=== PATIENT | male | born 1985 | race American Indian/Alaskan Native ===

== ENCOUNTER 2019-02-12 19:05 | Emergency (ER) | payer OTHER ==
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
--- NOTE | 2019-02-12 20:13 | Cat Scan Report ---
CT head/brain wo con INDICATION: headache. TECHNIQUE: Routine CT head without contrast. All CT scans at this location are performed using CT dos e reduction for ALARA by means of automated exposure control. COMPARISON: None. FINDINGS: BRAIN / INTRACRANIAL CONTENTS: No acute hemorrhage, mass effect, midline shift, or hydrocephalus. No appreciable acute large territorial or lacunar infarct. No chronic infarct or focal atrophy. Normal b rain volume and ventricular/sulcal size for age. ORBITS: No significant abnormality of visualized orbits. SINUSES / MASTOIDS: No significant abnormality of visualized sinuses and mastoid air cells. ADDITIONAL FINDINGS: None. IMPRESSION: 1. No acute intracranial abnormality. Signer Name: Derrick Henriquez MD Signed: 02/12/2019 8:09 PM Workstation Name: [id number]
[2019-02-12] MEDS ORDERED: IBUPROFEN PO ONE (20:31)
[2019-02-12] MEDS ORDERED: TYLENOL PO ONE (20:31)
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
[2019-02-12 21:33] VITALS: BP 140/62
== END 2019-02-12 21:31 | disposition home or self-care (01) ==
LOC: ED 19:05
DX: S01.511A Laceration without foreign body of lip, initial encounter (principal); G44.319 Acute post-traumatic headache, not intractable; F12.10 Cannabis abuse, uncomplicated; Z79.899 Other long term (current) drug therapy; W01.198A Fall on same level from slipping, tripping and stumbling with subsequent striking against other object, initial encounter; Y93.89 Activity, other specified; Y92.89 Other specified places as the place of occurrence of the external cause; Y99.8 Other external cause status
CPT/HCPCS: 70450